=== PATIENT | female | born 2000 | race Caucasian/White ===

== ENCOUNTER 2021-02-08 18:32 | Emergency (ER) | payer OTHER ==
--- NOTE | 2021-02-08 19:04 | EDM.PDOC ---
ED HPI GENERAL MEDICAL PROBLEM - General Chief Complaint: [employer] Problem Stated Complaint: VAGINAL BLEEDING/CHEST PAIN Time Seen by Provider: 02/08/21 18:49 Source of Information: Reports: Patient History Limitations: Reports: No Limitations - History of Present Illness INITIAL COMMENTS - FREE TEXT/NARRATIVE: The patient presents with a few complaints. She said today she had some chest pain. The pain was in the right chest and it radiated to her right upper back. She has no pain now. She also has been having some abdominal pain at times. The pain is in the mid to upper abdomen. She has no fever, chills, cough, congestion, runny nose, shortness of breath, nausea, vomiting, diarrhea or dysuria. She says for about 2 1/2 weeks she has been having vaginal bleeding. She has no pain with it. She was on the Depo shot months ago but quit. She did see her primary care and she referred her to [facility] but they are all full. She has a history of headaches from a skull fracture when she was young. She is on propranolol for that. She also asked to be checked for STDs. She said she just kicked her boyfriend out because he was cheating on her. I asked if she wanted to be tested for HIV and she said now. She just wanted the gonorrhea and chlamydia. She had chlamydia in the past. She denies having symptoms such as vaginal discharge or discomfort. Onset: Sudden Duration: Hour(s): Location: Reports: Chest Quality: Reports: Sharp Severity: Moderate Improves with: Reports: None Worsens with: Reports: None Associated Symptoms: Reports: Chest Pain. Denies: Cough, Fever/Chills, Headaches, Nausea/Vomiting, Shortness of Breath Middle Chest Pain Score (Numeric/FACES): 4 - Related Data Allergies Allergy/AdvReac Type Severity Reaction Status Date / Time No Known Allergies Allergy Verified 02/08/21 18:48 Home Meds: Home Meds Propranolol HCl [Propranolol] 40 mg PO BID 02/08/21 [History] Past Medical History Neurological History: Reports: Migraines - Infectious Disease History Infectious Disease History: Reports: None Social & Family History - Family History Family Medical History: No Pertinent Family History - Tobacco Use Tobacco Use Status *Q: Never Tobacco User Second Hand Smoke Exposure: No - Caffeine Use Caffeine Use: Reports: None - Recreational Drug Use Recreational Drug Use: No ED ROS GENERAL - Review of Systems Review Of Systems: See Below Constitutional: Reports: No Symptoms HEENT: Reports: No Symptoms Respiratory: Reports: No Symptoms Cardiovascular: Reports: Chest Pain Endocrine: Reports: No Symptoms GI/Abdominal: Reports: Abdominal Pain. Denies: Diarrhea, Nausea, Vomiting : Reports: Other (vaginal bleeding). Denies: Dysuria Musculoskeletal: Reports: No Symptoms Skin: Reports: No Symptoms ED EXAM, GI/ABD - Physical Exam Exam: See Below Exam Limited By: No Limitations General Appearance: Alert, No Apparent Distress Ears: Normal External Exam Nose: Normal Inspection Head: Atraumatic, Normocephalic Neck: Normal Inspection Respiratory/Chest: No Respiratory Distress, Lungs Clear, Normal Breath Sounds Cardiovascular: Regular Rate, Rhythm, No Edema, No Murmur GI/Abdominal Exam: Soft, Non-Tender, No Organomegaly, No Mass Back Exam: Normal Inspection Extremities: Normal Inspection Neurological: Alert, Oriented, No Motor/Sensory Deficits Course - Vital Signs Last Recorded V/S: Last Vital Signs Temp 97.1 F 02/08/21 18:41 Pulse 111 H 02/08/21 18:41 Resp 16 02/08/21 18:41 BP 113/77 02/08/21 18:41 Pulse Ox 98 02/08/21 18:41 - Orders/Labs/Meds Orders: Active Orders 24 hr Category Date Time Status Cardiac Monitoring [RC] . DIRECTED Care 02/08/21 18:56 Active EKG Documentation Completion [RC] STAT Care 02/08/21 18:56 Active CHLAMYDIA AND GONORRHEA BY TMA Stat Lab 02/08/21 18:58 Ordered GC/CHLAMYDIA BY PCR [MOLEC] Stat Lab 02/08/21 20:47 Ordered Labs: Laboratory Tests 02/08/21 02/08/21 02/08/21 Range/Units 10:21 10:21 10:21 WBC 5.44 (3.98-10.04) K/mm3 RBC 4.53 (3.98-5.22) M/mm3 Hgb 13.2 (11.2-15.7) gm/dl Hct 38.6 (34.1-44.9) % MCV 85.2 (79.4-94.8) fl MCH 29.1 (25.6-32.2) pg MCHC 34.2 (32.2-35.5) g/dl RDW Std Deviation 38.2 (36.4-46.3) fL Plt Count 256 (182-369) K/mm3 MPV 9.8 (9.4-12.3) fl Neut % (Auto) 61.7 (34.0-71.1) % Lymph % (Auto) 27.4 (19.3-51.7) % Cascade % (Auto) 8.5 (4.7-12.5) % Eos % (Auto) 1.5 (0.7-5.8) Baso % (Auto) 0.7 (0.1-1.2) % Neut # (Auto) 3.36 (1.56-6.13) K/mm3 Lymph # (Auto) 1.49 (1.18-3.74) K/mm3 Cascade # (Auto) 0.46 H (0.24-0.36) K/mm3 Eos # (Auto) 0.08 (0.04-0.36) K/mm3 Baso # (Auto) 0.04 (0.01-0.08) K/mm3 Sodium 140 (136-145) mEq/L Potassium 3.2 L (3.5-5.1) mEq/L Chloride 104 (98-107) mEq/L Carbon Dioxide 27 (21-32) mEq/L Anion Gap 12.2 (5-15) BUN 18 (7-18) mg/dL Creatinine 0.9 (0.55-1.02) mg/dL Est Cr Clr Drug Dosing 84.75 mL/min Estimated GFR (MDRD) > 60 (>60) mL/min BUN/Creatinine Ratio 20.0 H (14-18) Glucose 118 H (70-99) mg/dL Calcium 8.6 (8.5-10.1) mg/dL Total Bilirubin 0.4 (0.2-1.0) mg/dL AST 11 L (15-37) U/L ALT 11 L (14-59) U/L Alkaline Phosphatase 60 (46-116) U/L Troponin I < 0.017 (0.00-0.056) ng/mL Total Protein 7.4 (6.4-8.2) g/dl Albumin 4.2 (3.4-5.0) g/dl Globulin 3.2 gm/dL Albumin/Globulin Ratio 1.3 (1-2) Lipase 114 (73-393) U/L HCG, Qual Negative (NEGATIVE) - Re-Assessments/Exams Free Text/Narrative Re-Assessment/Exam: 02/08/21 19:05 I have ordered an EKG, CXR, labs, urine for gonorrhea and chlamydia and pelvic exam with wet prep. My nurse came to tell me the patient did not want to have the pelvic exam done. She would rather see her primary care provider. 02/08/21 20:55 Her CXR looks good. Her EKG shows a NSR with no acute changes. Her CBC and CMP look good. Her troponin is negative. The gonorrhea and chlamydia will take awhile. I will discharge her and call her the results. Departure - Departure Time of Disposition: 21:00 Disposition: Home, Self-Care 01 Condition: Good Clinical Impression: Atypical chest pain, Vaginal bleeding - Discharge Information *PRESCRIPTION DRUG MONITORING PROGRAM REVIEWED*: Not Applicable *COPY OF PRESCRIPTION DRUG MONITORING REPORT IN PATIENT LINDA: Not Applicable Referrals: Colleen Sheets DIGITAL MEDIA ANALYST [Primary Care Provider] - 1 Week Forms: ED Department Discharge Additional Instructions: Drink plenty of fluids. Take tylenol or motrin for pain. I will call you with the results of that urine test. Sepsis Event Note (ED) - Evaluation Sepsis Screening Result: No Definite Risk - Focused Exam Vital Signs: Vital Signs Temp Pulse Resp BP Pulse Ox 02/08/21 18:41 97.1 F 111 H 16 113/77 98 - My Orders Last 24 Hours: My Active Orders 02/08/21 18:56 Cardiac Monitoring [RC] . DIRECTED EKG Documentation Completion [RC] STAT 02/08/21 18:58 CHLAMYDIA AND GONORRHEA BY TMA Stat 02/08/21 20:47 GC/CHLAMYDIA BY PCR [MOLEC] Stat - Assessment/Plan Last 24 Hours: My Active Orders 02/08/21 18:56 Cardiac Monitoring [RC] . DIRECTED EKG Documentation Completion [RC] STAT 02/08/21 18:58 CHLAMYDIA AND GONORRHEA BY TMA Stat 02/08/21 20:47 GC/CHLAMYDIA BY PCR [MOLEC] Stat
--- NOTE | 2021-02-08 20:14 | CR ---
Chest: Frontal and lateral views of the chest were obtained. Comparison: No prior chest imaging is available. Slight scoliosis is noted within the spine. Heart size and mediastinum are normal. Lungs are clear with no acute parenchymal change. Impression: 1. Nothing acute is seen on 2 view chest x-ray. Diagnostic code #2
[2021-02-08 22:33] LABS: C. TRACHOMATIS BY PCR NOT DETECTED; N. GONORRHOEAE BY PCR NOT DETECTED
== END 2021-02-08 21:10 | disposition home or self-care (01) ==
LOC: JD.ED 18:32
DX: R07.89 Other chest pain (principal); N93.9 Abnormal uterine and vaginal bleeding, unspecified
CPT/HCPCS: 36415; 71046; 71046-26; 80053; 83690; 84484; 84703; 85025; 87491; 87591; 93005; 99283; 99285-25

== ENCOUNTER 2021-04-24 23:25 | Emergency (ER) | payer OTHER ==
[2021-04-25] MEDS ORDERED: Alum Hydrox/Mag Hydrox/Simeth 30 ML, Lidocaine 2% 15 ML PO STA ×2 (01:38)
[2021-04-25] MEDS ORDERED: Ondansetron 4 MG/2 ML SDV IVPUSH ONE (01:38)
--- NOTE | 2021-04-25 01:44 | EDM.PDOC ---
ED HPI GENERAL MEDICAL PROBLEM - General Chief Complaint: Abdominal Pain Stated Complaint: CHEST PAIN / ABDOMINAL PAIN Time Seen by Provider: 04/25/21 01:12 Source of Information: Reports: Patient History Limitations: Reports: No Limitations - History of Present Illness INITIAL COMMENTS - FREE TEXT/NARRATIVE: Ms. Chairez is a very pleasant 20-year-old woman who now presents the ED stating that she has been experiencing episodic epigastric pain radiating up into her chest for the past few months, worse over the past few days. She reports having nausea after eating, but no vomiting. The patient states that she was seen at an ED in [place], and that some form of study indicated that she had abnormal gallbladder function. She was instructed to follow-up, but never did, citing lack of health insurance. Medical records indicate that the patient was seen in this ED for essentially the same complaint on 02/08/2021. She was found to be hemodynamically stable, afebrile, saturating 98% on room air. Her physical exam was unremarkable. Work-up included a CBC, CMP, lipase, troponin, serum qualitative hCG, urine GC/chlamydia by PCR, chest x-ray, and ECG. Her entire work-up was unremarkable. The patient states that she talked with her PCP yesterday, 04/24/2021, and was told that nothing could be done. She was prescribed an increased dose of her anti-anxiety medication, whose name she does not recall, plus a different anti-anxiety medication. She states that she has not yet started either of them. Here in the ED tonight, the patient was initially found to be slightly tachycardic at 105 bpm, otherwise, she is hemodynamically stable, afebrile, saturating 100% on room air. She appears to be comfortable, in no acute distress. She states that she last ate around 22:00 last night. Other than her recurrent epigastric pain radiating to her chest, and nausea, the patient denies having a recent fever, chills, sore throat, ear pain, nasal or sinus congestion, cough, dyspnea, palpitations, vomiting, constipation, diarrhea, urinary symptoms, recent weight gain or weight loss, recent bloody bowel movements or black bowel movements, recent joint aches, headaches, or rashes. The patient's PCP is Colleen Sheets NP. Abdomen Pain Score (Numeric/FACES): 10 - Related Data Allergies Allergy/AdvReac Type Severity Reaction Status Date / Time No Known Allergies Allergy Verified 04/24/21 23:42 Home Meds: Home Meds Propranolol HCl [Propranolol] 40 mg PO BID 02/08/21 [History] Escitalopram [Lexapro] 10 mg PO DAILY 04/24/21 [History] hydrOXYzine HCL [Atarax] 5 ml PO QID PRN 04/24/21 [History] Past Medical History Musculoskeletal History: Reports: Fracture (Skull fx when 2 yrs old. Right ankle fx.) Neurological History: Reports: Migraines Psychiatric History: Reports: Anxiety Social & Family History - Tobacco Use Tobacco Use Status *Q: Never Tobacco User - Caffeine Use Caffeine Use: Reports: None - Alcohol Use Alcohol Use History: No - Recreational Drug Use Recreational Drug Use: No - Living Situation & Occupation Living situation: Reports: Single, with Family Occupation: Employed ([employer]) ED ROS GENERAL - Review of Systems Review Of Systems: Comprehensive ROS is negative, except as noted in HPI. ED EXAM, GI/ABD - Physical Exam Exam: See Below Exam Limited By: No Limitations General Appearance: Alert, No Apparent Distress, Thin Eyes: Bilateral: Normal Appearance, EOMI Ears: Normal External Exam, Hearing Grossly Normal Nose: Normal Inspection Throat/Mouth: Normal Inspection, Normal Lips, Normal Voice, No Airway Compromise Head: Atraumatic, Normocephalic Neck: Normal Inspection, Full Range of Motion Respiratory/Chest: No Respiratory Distress, Lungs Clear, Normal Breath Sounds, No Accessory Muscle Use Cardiovascular: Normal Peripheral Pulses, Regular Rate, Rhythm, No Edema, No Gallop, No JVD, No Murmur, No Rub GI/Abdominal Exam: Normal Bowel Sounds, Soft, No Organomegaly, No Distention, No Abnormal Bruit, No Mass, Tender (Mild, in the epigastrium only. Nontender elsewhere.) Back Exam: Normal Inspection, Full Range of Motion. No: CVA Tenderness (L), CVA Tenderness (R) Extremities: Normal Inspection, Normal Range of Motion, No Pedal Edema, Normal Capillary Refill Neurological: Alert, Oriented, Normal Cognition, No Motor/Sensory Deficits Psychiatric: Normal Affect Skin Exam: Warm, Dry, Intact, Normal Color, No Rash Course - Vital Signs Last Recorded V/S: Last Vital Signs Temp 37.0 C 04/24/21 23:44 Pulse 105 H 04/24/21 23:44 Resp 15 04/24/21 23:44 BP 120/77 04/24/21 23:44 Pulse Ox 100 04/24/21 23:44 - Orders/Labs/Meds Labs: Laboratory Tests 04/25/21 04/25/21 Range/Units 02:09 02:09 WBC 6.89 (3.98-10.04) K/mm3 RBC 4.39 (3.98-5.22) M/mm3 Hgb 12.6 (11.2-15.7) gm/dl Hct 37.7 (34.1-44.9) % MCV 85.9 (79.4-94.8) fl MCH 28.7 (25.6-32.2) pg MCHC 33.4 (32.2-35.5) g/dl RDW Std Deviation 40.6 (36.4-46.3) fL Plt Count 267 (182-369) K/mm3 MPV 9.3 L (9.4-12.3) fl Neutrophils % (Manual) 60 (40-60) % Band Neutrophils % 0 (0-10) % Lymphocytes % (Manual) 30 (20-40) % Atypical Lymphs % 0 % Monocytes % (Manual) 9 (2-10) % Eosinophils % (Manual) 1 (0.7-5.8) % Basophils % (Manual) 0 L (0.1-1.2) Platelet Estimate Adequate RBC Morph Comment Normal Sodium 143 (136-145) mEq/L Potassium 3.6 (3.5-5.1) mEq/L Chloride 107 (98-107) mEq/L Carbon Dioxide 29 (21-32) mEq/L Anion Gap 10.6 (5-15) BUN 19 H (7-18) mg/dL Creatinine 0.7 (0.55-1.02) mg/dL Est Cr Clr Drug Dosing 118.52 mL/min Estimated GFR (MDRD) > 60 (>60) mL/min BUN/Creatinine Ratio 27.1 H (14-18) Glucose 95 (70-99) mg/dL Calcium 8.8 (8.5-10.1) mg/dL Total Bilirubin 0.4 (0.2-1.0) mg/dL AST 11 L (15-37) U/L ALT 15 (14-59) U/L Alkaline Phosphatase 69 (46-116) U/L Total Protein 7.0 (6.4-8.2) g/dl Albumin 3.7 (3.4-5.0) g/dl Globulin 3.3 gm/dL Albumin/Globulin Ratio 1.1 (1-2) Lipase 83 (73-393) U/L Meds: Medications Discontinued Medications Generic Name Dose Route Start Last Admin Trade Name Freq PRN Reason Stop Dose Admin Al Hydroxide/Mg Hydroxide 30 0 ml 04/25/21 01:38 04/25/21 02:07 ml/ Lidocaine HCl 15 ml PO 04/25/21 01:39 45 ml ONETIME STA Administration Famotidine 40 mg 04/25/21 03:06 04/25/21 03:18 Famotidine 20 Mg Tab PO 04/25/21 03:07 40 mg ONETIME STA Administration Sodium Chloride 1,000 mls @ 150 mls/hr 04/25/21 01:45 04/25/21 02:06 Normal Saline IV 150 mls/hr ASDIRECTED ZARINA Administration Ondansetron HCl 4 mg 04/25/21 01:38 04/25/21 02:06 Ondansetron 4 Mg/2 Ml Sdv IVPUSH 04/25/21 01:39 4 mg ONETIME ONE Administration - Re-Assessments/Exams Free Text/Narrative Re-Assessment/Exam: 04/25/21 01:39 As above, the patient has been experiencing intermittent epigastric pain radiating up into her chest for the past few months. She states that she was seen in an ED in [place], where she might have undergone a HIDA scan, which showed abnormal biliary function. She was seen in this ED on 02/08/2021, where a work- up included blood work, a urine GC/chlamydia by PCR, a chest x-ray, and an ECG, all of which were unremarkable. She states that her symptoms have gotten worse over the past few days, and that she has nausea after eating, but no vomiting. On examination, she reports mild epigastric tenderness, otherwise, her exam is unremarkable. She will be given a GI cocktail, to see if that has any effect on her symptoms. I have ordered a work-up that includes several blood tests, however, the patient declined an offer for a CT of the abdomen and pelvis, stating that she has to be at work at 6 AM. Because she ate at 22:00, an ultrasound of her right upper quadrant is not an option at this time. She will be given some IV fluid and IV Zofran, however, again, because she has to be at work at 6 AM, she declined an offer for pain medication. 04/25/21 02:27 The patient reports that the GI cocktail did help with her symptoms. 04/25/21 03:06 The patient's CBC is unremarkable. Her CMP is unremarkable. Her lipase level is within normal limits at 83. Based on the above, I have ordered 40 mg of oral famotidine. 04/25/21 03:09 Test results discussed with the patient. As above, since she had improvement of her symptoms following GI cocktail, it appears that her symptoms are due to GERD. Going forward, I will recommend that she take 1 tablet of OTC famotidine twice a day x 7 days, after which she can take 1 tablet each morning. If her symptoms return, she should return to a BID schedule. If she wants to look further into whether or not she has gallbladder disease, have recommended that she follow-up with her PCP, who can order an outpatient evaluation. Departure - Departure Time of Disposition: 03:10 Disposition: Home, Self-Care 01 Condition: Good Clinical Impression: GERD (gastroesophageal reflux disease) - Discharge Information *PRESCRIPTION DRUG MONITORING PROGRAM REVIEWED*: Not Applicable *COPY OF PRESCRIPTION DRUG MONITORING REPORT IN PATIENT LINDA: Not Applicable Instructions: Gastroesophageal Reflux Disease, Adult Referrals: Colleen Sheets CUSTOMER STRATEGY MANAGER [Primary Care Provider] - Forms: ED Department Discharge Additional Instructions: You were seen in the emergency room for 2 months of intermittent upper midline abdominal pain radiating into your chest, associated with nausea. Work-up in the ER included several blood tests, which returned unremarkable. There is no sign of an infection. You do not have pancreatitis. You were given a GI cocktail, which improved your symptoms, indicating that your symptoms are most likely due to GERD, also known as acid reflux. You have been started on antacid medicine famotidine (Pepcid). Famotidine is available [id number], and is just as good as brand-name Pepcid. We recommend that you take 1 tablet of famotidine twice a day for 1 week, then decrease the dosage to 1 tablet each morning. If your symptoms return after you decrease your dosage, you should return to 1 tablet twice a day, however, if you remain asymptomatic, then we recommend that you continue on 1 tablet of famotidine every morning. If you want to pursue further evaluation of your gallbladder, we recommend that you follow-up with your PCP, Colleen Sheets NP, for an outpatient work-up that could include an ultrasound of your gallbladder and a HIDA scan. If any other problems, please do not hesitate to return to the ER. Sepsis Event Note (ED) - Evaluation Sepsis Screening Result: No Definite Risk - Focused Exam Vital Signs: Vital Signs Temp Pulse Resp BP Pulse Ox 04/24/21 23:44 37.0 C 105 H 15 120/77 100
[2021-04-25] MEDS ORDERED: Sodium Chloride 0.9% 1,000 ML IV SCH (01:45)
[2021-04-25] MEDS ORDERED: Famotidine 20 MG Tab PO STA (03:06)
== END 2021-04-25 03:23 | disposition home or self-care (01) ==
LOC: JD.ED 23:25
DX: K21.9 Gastro-esophageal reflux disease without esophagitis (principal)
CPT/HCPCS: 36415; 80053; 83690; 85007; 85027; 96374; 99284; A9270; J2405; J7030; 99283

== ENCOUNTER 2021-06-13 13:23 | Emergency (ER) | payer OTHER ==
[2021-06-13] MEDS ORDERED: Sodium Chloride 0.9% 10 ML Syringe FLUSH PRN (13:35)
--- NOTE | 2021-06-13 13:51 | EDM.PDOC ---
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 Patient states she has never been before ever. She has been having unprotected sex, so there is a possibility that she could be . She is having some lower abdominal discomfort with this. States that she had her period twice this month already, and that she is soaking through about 6 or 8 pads pretty regularly on a daily basis. States that when she was in the bathroom, and wipes to get off of the toilet, that the blood still is dripping out. She does have a history of ovarian cysts as well. She states that the pain does feel like period cramps however it is a little bit worse than that. She has not had any fevers or chills, cough or shortness of breath or any sort of nausea/vomiting/diarrhea. Abdomen Pain Score (Numeric/FACES): 8 - Related Data Allergies Allergy/AdvReac Type Severity Reaction Status Date / Time No Known Allergies Allergy Verified 06/13/21 13:36 Home Meds: Home Meds Propranolol HCl [Propranolol] 40 mg PO BID 02/08/21 [History] Escitalopram [Lexapro] 10 mg PO DAILY 04/24/21 [History] hydrOXYzine HCL [Atarax] 5 ml PO QID PRN 04/24/21 [History] medroxyPROGESTERone [Provera] 10 mg PO DAILY #10 tab 06/13/21 [Rx] Past Medical History Genitourinary History: Reports: STD Other Genitourinary History: chlamydia Musculoskeletal History: Reports: Fracture Other Musculoskeletal History: skull fx when she was 2 Neurological History: Reports: Migraines Psychiatric History: Reports: Anxiety Social & Family History - Family History Family Medical History: No Pertinent Family History - Tobacco Use Tobacco Use Status *Q: Never Tobacco User Second Hand Smoke Exposure: No - Caffeine Use Caffeine Use: Reports: None - Recreational Drug Use Recreational Drug Use: No - Living Situation & Occupation Living situation: Reports: Single, with Family Occupation: Employed ([employer]) ED ROS GENERAL - Review of Systems Review Of Systems: Comprehensive ROS is negative, except as noted in HPI. ED EXAM, RENAL/ - Physical Exam Exam: See Below Exam Limited By: No Limitations General Appearance: Alert, WD/WN, No Apparent Distress Respiratory/Chest: No Respiratory Distress, Lungs Clear, Normal Breath Sounds, No Accessory Muscle Use, Chest Non-Tender Cardiovascular: Normal Peripheral Pulses, Regular Rate, Rhythm, No Edema GI/Abdominal: Normal Bowel Sounds, Soft, No Distention, No Mass, Tender (lower abdomen mainly) (Female) Exam: Vaginal Bleeding (as reported by patient- bleeding through 6-8 pads daily) Extremities: Normal Inspection, Normal Capillary Refill Neurological: Alert, Oriented, Normal Cognition, No Motor/Sensory Deficits Psychiatric: Normal Affect, Normal Mood Skin Exam: Warm, Dry, Intact, Normal Color, No Rash Course - Vital Signs Last Recorded V/S: Last Vital Signs Temp 97.9 F 06/13/21 13:34 Pulse 98 06/13/21 13:34 Resp 16 06/13/21 13:34 BP 127/86 06/13/21 13:34 Pulse Ox 100 06/13/21 13:34 - Orders/Labs/Meds Orders: Active Orders 24 hr Category Date Time Status Peripheral IV Care [RC] . DIRECTED Care 06/13/21 13:36 Ordered Transvaginal Non OB [US] Stat Exams 06/13/21 15:06 Ordered PATIENT RETYPE [BBK] Routine Lab 06/13/21 14:40 Ordered Sodium Chloride 0.9% [Saline Flush] Med 06/13/21 13:35 Ordered 10 ml FLUSH ASDIRECTED PRN Peripheral IV Insertion Adult [OM.PC] Stat Oth 06/13/21 13:36 Ordered Medication Orders Sodium Chloride (Sodium Chloride 0.9% 10 Ml Syringe) 10 ml FLUSH ASDIRECTED PRN PRN Reason: Keep Vein Open Labs: Laboratory Tests 06/13/21 06/13/21 06/13/21 Range/Units 13:40 13:45 13:45 WBC 6.83 (3.98-10.04) K/mm3 RBC 4.94 (3.98-5.22) M/mm3 Hgb 14.1 D (11.2-15.7) gm/dl Hct 42.3 (34.1-44.9) % MCV 85.6 (79.4-94.8) fl MCH 28.5 (25.6-32.2) pg MCHC 33.3 (32.2-35.5) g/dl RDW Std Deviation 41.1 (36.4-46.3) fL Plt Count 257 (182-369) K/mm3 MPV 9.2 L (9.4-12.3) fl Neut % (Auto) 72.4 H (34.0-71.1) % Lymph % (Auto) 18.2 L (19.3-51.7) % Gordon % (Auto) 7.0 (4.7-12.5) % Eos % (Auto) 2.0 (0.7-5.8) Baso % (Auto) 0.3 (0.1-1.2) % Neut # (Auto) 4.94 (1.56-6.13) K/mm3 Lymph # (Auto) 1.24 (1.18-3.74) K/mm3 Gordon # (Auto) 0.48 H (0.24-0.36) K/mm3 Eos # (Auto) 0.14 (0.04-0.36) K/mm3 Baso # (Auto) 0.02 (0.01-0.08) K/mm3 Sodium 140 (136-145) mEq/L Potassium 3.7 (3.5-5.1) mEq/L Chloride 103 (98-107) mEq/L Carbon Dioxide 28 (21-32) mEq/L Anion Gap 12.7 (5-15) BUN 22 H (7-18) mg/dL Creatinine 0.7 (0.55-1.02) mg/dL Est Cr Clr Drug Dosing 119.01 mL/min Estimated GFR (MDRD) > 60 (>60) mL/min BUN/Creatinine Ratio 31.4 H (14-18) Glucose 97 (70-99) mg/dL Calcium 8.9 (8.5-10.1) mg/dL Total Bilirubin 0.3 (0.2-1.0) mg/dL AST 17 (15-37) U/L ALT 26 (14-59) U/L Alkaline Phosphatase 86 (46-116) U/L C-Reactive Protein <0.2 (<1.0) mg/dL Total Protein 8.0 (6.4-8.2) g/dl Albumin 4.1 (3.4-5.0) g/dl Globulin 3.9 gm/dL Albumin/Globulin Ratio 1.1 (1-2) HCG, Qual (NEGATIVE) Urine Color Yellow (Yellow) Urine Appearance Clear (Clear) Urine pH 6.0 (5.0-8.0) Ur Specific [place] > or = 1.030 (1.005-1.030) Urine Protein Negative (Negative) Urine Glucose (UA) Negative (Negative) Urine Ketones Negative (Negative) Urine Occult Blood 3+ H (Negative) Urine Nitrite Negative (Negative) Urine Bilirubin Negative (Negative) Urine Urobilinogen 0.2 (0.2-1.0) Ur Leukocyte Esterase Negative (Negative) U Hyaline Cast (Auto) Supervisor Insecticide Urine RBC 10-20 H (0-5) /hpf Urine WBC 0-5 (0-5) /hpf Ur Squamous Epith Cells 5-10 H (0-5) /hpf Urine Bacteria Few (FEW) /hpf Urine Mucus Few (FEW) /hpf Blood Type Gel Antibody Screen 06/13/21 06/13/21 Range/Units 13:45 13:45 WBC (3.98-10.04) K/mm3 RBC (3.98-5.22) M/mm3 Hgb (11.2-15.7) gm/dl Hct (34.1-44.9) % MCV (79.4-94.8) fl MCH (25.6-32.2) pg MCHC (32.2-35.5) g/dl RDW Std Deviation (36.4-46.3) fL Plt Count (182-369) K/mm3 MPV (9.4-12.3) fl Neut % (Auto) (34.0-71.1) % Lymph % (Auto) (19.3-51.7) % Gordon % (Auto) (4.7-12.5) % Eos % (Auto) (0.7-5.8) Baso % (Auto) (0.1-1.2) % Neut # (Auto) (1.56-6.13) K/mm3 Lymph # (Auto) (1.18-3.74) K/mm3 Gordon # (Auto) (0.24-0.36) K/mm3 Eos # (Auto) (0.04-0.36) K/mm3 Baso # (Auto) (0.01-0.08) K/mm3 Sodium (136-145) mEq/L Potassium (3.5-5.1) mEq/L Chloride (98-107) mEq/L Carbon Dioxide (21-32) mEq/L Anion Gap (5-15) BUN (7-18) mg/dL Creatinine (0.55-1.02) mg/dL Est Cr Clr Drug Dosing mL/min Estimated GFR (MDRD) (>60) mL/min BUN/Creatinine Ratio (14-18) Glucose (70-99) mg/dL Calcium (8.5-10.1) mg/dL Total Bilirubin (0.2-1.0) mg/dL AST (15-37) U/L ALT (14-59) U/L Alkaline Phosphatase (46-116) U/L C-Reactive Protein (<1.0) mg/dL Total Protein (6.4-8.2) g/dl Albumin (3.4-5.0) g/dl Globulin gm/dL Albumin/Globulin Ratio (1-2) HCG, Qual Negative (NEGATIVE) Urine Color (Yellow) Urine Appearance (Clear) Urine pH (5.0-8.0) Ur Specific [place] (1.005-1.030) Urine Protein (Negative) Urine Glucose (UA) (Negative) Urine Ketones (Negative) Urine Occult Blood (Negative) Urine Nitrite (Negative) Urine Bilirubin (Negative) Urine Urobilinogen (0.2-1.0) Ur Leukocyte Esterase (Negative) U Hyaline Cast (Auto) Urine RBC (0-5) /hpf Urine WBC (0-5) /hpf Ur Squamous Epith Cells (0-5) /hpf Urine Bacteria (FEW) /hpf Urine Mucus (FEW) /hpf Blood Type O POSITIVE Gel Antibody Screen Negative Meds: Medications Generic Name Dose Route Start Last Admin Trade Name Freq PRN Reason Stop Dose Admin Sodium Chloride 10 ml 06/13/21 13:35 Sodium Chloride 0.9% 10 Ml Syringe FLUSH ASDIRECTED PRN Keep Vein Open Discontinued Medications Generic Name Dose Route Start Last Admin Trade Name Freq PRN Reason Stop Dose Admin Ketorolac Tromethamine 30 mg 06/13/21 15:03 06/13/21 15:09 Ketorolac 30 Mg/Ml Sdv IM 06/13/21 15:04 30 mg ONETIME ONE Administration - Re-Assessments/Exams Free Text/Narrative Re-Assessment/Exam: 06/13/21 13:51 Patient presents to the ER for evaluation of vaginal bleeding. We will go ahead and evaluate for initially along with basic labs to evaluate the extent of the blood loss. 06/13/21 14:35 Labs are unremarkable at this time, patient's hemoglobin is at a level of 14. hCG qualitative serum level is still pending. 06/13/21 15:09 hCG test is negative for today's purposes. Patient was requesting something for pain I have ordered some IM Toradol for this. I did go and discuss lab results with the patient, and since she has a history of ovarian cysts, she was wondering if she could get an ultrasound done while she is here to rule out the possibility of any sort of ruptured ovarian cysts or complications pertaining to her cysts. Although I do believe this to be dysfunctional uterine bleeding, I have ordered a transvaginal non-OB ultrasound for further evaluation. 06/13/21 16:47 Patient's ultrasound demonstrates no sign of ovarian cyst at this time, there is septated irregular fluid collections within the endocervical canal and the endometrium of the lower uterine segment fluid component could be impending menses which correlates clinically, or endometritis. Departure - Departure Time of Disposition: 16:47 Disposition: Home, Self-Care 01 Condition: Good Clinical Impression: Dysfunctional uterine bleeding - Discharge Information *PRESCRIPTION DRUG MONITORING PROGRAM REVIEWED*: No *COPY OF PRESCRIPTION DRUG MONITORING REPORT IN PATIENT LINDA: No Prescriptions: medroxyPROGESTERone [Provera] 10 mg PO DAILY #10 tab Instructions: Abnormal Uterine Bleeding, [id number] Referrals: Colleen Sheets NP [Primary Care Provider] - Forms: ED Department Discharge Additional Instructions: You were seen in the ER for your vaginal bleeding. Laboratory evaluation at today's visit demonstrated no sign of a bacterial infection, , or any sort of electrolyte abnormalities. It is highly likely this is due to dysfunctional uterine bleeding, which sometimes happens. Your ultrasound demonstrated no sign of any sort of ovarian cyst at today's visit. You have been placed on a medication to "reset" your menstrual cycle. You will need to take 1 tablet daily for the next 10 days. This medication was electronically sent to the [facility] pharmacy located on [address]. If you do not have a primary care provider already, I recommend that you follow- up with a provider in our clinic, any family practice provider or PLASTICS ENGINEER would be able to provide you with the services. Our clinic telephone number [phone], please call in the morning to obtain an appointment with the provider, for follow-up of your symptoms that prompted your ER visit today. Do not hesitate to return to the ER at any time if symptoms change or worsen. Sepsis Event Note (ED) - Evaluation Sepsis Screening Result: No Definite Risk - Focused Exam Vital Signs: Vital Signs Temp Pulse Resp BP Pulse Ox 06/13/21 13:34 97.9 F 98 16 127/86 100 - My Orders Last 24 Hours: My Active Orders 06/13/21 13:35 Sodium Chloride 0.9% [Saline Flush] 10 ml FLUSH ASDIRECTED PRN 06/13/21 13:36 Peripheral IV Care [RC] . DIRECTED Peripheral IV Insertion Adult [OM.PC] Stat 06/13/21 14:40 PATIENT RETYPE [BBK] Routine 06/13/21 15:06 Transvaginal Non OB [US] Stat - Assessment/Plan Last 24 Hours: My Active Orders 06/13/21 13:35 Sodium Chloride 0.9% [Saline Flush] 10 ml FLUSH ASDIRECTED PRN 06/13/21 13:36 Peripheral IV Care [RC] . DIRECTED Peripheral IV Insertion Adult [OM.PC] Stat 06/13/21 14:40 PATIENT RETYPE [BBK] Routine 06/13/21 15:06 Transvaginal Non OB [US] Stat
[2021-06-13] MEDS ORDERED: Ketorolac 30 MG/ML SDV IM ONE (15:03)
--- NOTE | 2021-06-14 06:51 | US ---
Pelvic ultrasound: Multiple real-time images were obtained transvaginally. Comparison: Prior pelvic ultrasound study of 10/05/20. Septated fluid collection is seen within the endometrial cavity. Endometrial thickness is otherwise normal at 6.1 mm. No myometrial abnormality is appreciated. Multiple follicles are seen within both ovaries. Small amount of free fluid is seen believed to be physiologic. Measurements: Right ovary: 4.0 x 2.5 x 2.5 cm Left ovary: 3.2 x 2.1 x 2.8 cm Uterus: Length 6.5 cm, AP height 2.7 cm, transverse width 3.6 cm Impression: 1. Septated fluid collection within the endometrial cavity. This most likely represents a small amount of blood or other endometrial fluid. 2. Small amount of fluid within the pelvis most likely physiologic. 3. Other portions of the pelvic ultrasound study are unremarkable. Diagnostic code #2 I agree with preliminary report from [facility], finalized on 06/13/21, 5:36 PM CDT, code 1
== END 2021-06-13 17:12 | disposition home or self-care (01) ==
LOC: JD.ED 13:23
DX: N93.8 Other specified abnormal uterine and vaginal bleeding (principal)
CPT/HCPCS: 36415; 76830; 80053; 81001; 84703; 85025; 86140; 86850; 86900; 86901; 96372; 99284; J1885

== ENCOUNTER 2021-06-28 20:02 | Emergency (ER) | payer OTHER ==
[2021-06-28] MEDS ORDERED: Codeine/Promethazine 10-6.25 MG/5 ML Syrup 5 ML UD Cup PO ONE (20:30)
[2021-06-28] MEDS ORDERED: Ketorolac 30 MG/ML SDV IM ONE (20:30)
--- NOTE | 2021-06-28 20:35 | EDM.PDOC ---
ED HPI GENERAL MEDICAL PROBLEM - General Chief Complaint: General Stated Complaint: FEVER/COUGH/DIARRHEA/VOMITING Time Seen by Provider: 06/28/21 20:23 Source of Information: Reports: Patient, RN Notes Reviewed History Limitations: Reports: No Limitations - History of Present Illness INITIAL COMMENTS - FREE TEXT/NARRATIVE: Patient is a 20-year old female who presents to the ER for her multiple upper respiratory symptoms. Patient states that this started on Friday, but has worsened today. She has a cough, feels feverish, has had some chills, body aches, nausea without vomiting, and has had diarrhea as well. States she has tried multiple [id number] medications and nothing really seems to be providing much relief. Patient states that she has not been around anyone has been sick that she is aware of. She does state that her brother and sister both leave the house for work, but she is not left the house all week. 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, Other (See Below) 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 ED EXAM, GENERAL - Physical Exam Exam: See Below Exam Limited By: No Limitations General Appearance: Alert, WD/WN, No Apparent Distress Respiratory/Chest: No Respiratory Distress, Lungs Clear, Normal Breath Sounds, No Accessory Muscle Use, Chest Non-Tender Cardiovascular: Normal Peripheral Pulses, Regular Rate, Rhythm, No Edema GI/Abdominal: Normal Bowel Sounds, Soft, Non-Tender, No Distention, No Mass Neurological: Alert, Oriented, Normal Cognition, No Motor/Sensory Deficits Psychiatric: Normal Affect, Normal Mood Skin Exam: Warm, Dry, Intact, Normal Color, No Rash Course - Vital Signs Last Recorded V/S: Last Vital Signs Temp 98.4 F 06/28/21 20:18 Pulse 128 H 06/28/21 20:18 Resp 18 06/28/21 20:18 BP 116/74 06/28/21 20:18 Pulse Ox 99 06/28/21 20:18 - Orders/Labs/Meds Labs: Laboratory Tests 06/28/21 Range/Units 20:10 Influenza Type A RNA Negative (NEGATIVE) Influenza Type B RNA Negative (NEGATIVE) SARS-CoV-2 RNA (KAYLEY) Negative (NEGATIVE) Meds: Medications Discontinued Medications Generic Name Dose Route Start Last Admin Trade Name Freq PRN Reason Stop Dose Admin Ketorolac Tromethamine 30 mg 06/28/21 20:30 06/28/21 20:41 Ketorolac 30 Mg/Ml Sdv IM 06/28/21 20:31 30 mg ONETIME ONE Administration Promethazine HCl/Codeine 10 ml 06/28/21 20:30 06/28/21 20:40 Codeine/Promethazine 10-6.25 Mg/5 Ml Syrup 5 Ml Ud Cup PO 06/28/21 20:31 10 ml ONETIME ONE Administration - Re-Assessments/Exams Free Text/Narrative Re-Assessment/Exam: 06/28/21 20:37 Patient presents to the ER for the evaluation of her multiple upper respiratory symptoms. Covid and flu swab were obtained at time of triage. We will go ahead and give her IM Toradol and some cough medicine to see if this helps relieve some of her symptoms. 06/28/21 21:26 The patient's Covid and flu screen are negative at today's visit, however her symptoms are very suspicious for COVID-19. We will have her go ahead and isolate herself away from others as much as possible, and have her retest for COVID-19 in a few days. Departure - Departure Time of Disposition: 21:26 Disposition: Home, Self-Care 01 Condition: Good Clinical Impression: Suspected COVID-19 virus infection - Discharge Information *PRESCRIPTION DRUG MONITORING PROGRAM REVIEWED*: No *COPY OF PRESCRIPTION DRUG MONITORING REPORT IN PATIENT LINDA: No Prescriptions: Codeine/Promethazine [Phenergan with Codeine] 5 ml PO Q4HR PRN #120 ml PRN Reason: Cough Instructions: COVID-19: Quarantine vs. Isolation - [facility] (09/07/2020) Referrals: Colleen Sheets, LEARNING SERVICES COORDINATOR [Primary Care Provider] - Forms: ED Department Discharge Additional Instructions: You were evaluated in the ER today for your [id number] symptoms. Your COVID-19 and influenza test did come back negative, but sometimes these are false negatives. These Covid screens are only about 60% accurate; and it is common to test negative initially but then test positive a few days later. Due to this, we recommend that you try to isolate yourself away from others, and get retested for COVID-19 in about 3 or 4 days. There are multiple sites that can do this, there is a drive-through clinic conducted by the [facility], there is a walk-in clinic and our Covid clinic that can help you with these. Continue all other medications as previously prescribed. You were given a prescription for cough medication that was sent to the [facility] pharmacy located on [address]. Please fill this tomorrow and take as prescribed. Continue to use Tylenol ibuprofen every 6 hours as needed for ongoing pain management. Do not hesitate to return to the ER at any time if symptoms change or worsen. Sepsis Event Note (ED) - Focused Exam Vital Signs: Vital Signs Temp Pulse Resp BP Pulse Ox 06/28/21 20:18 98.4 F 128 H 18 116/74 99
[2021-06-28 21:18] LABS: CORONAVIRUS COVID-19 NAA NEGATIVE (NEGATIVE)
== END 2021-06-28 21:40 | disposition home or self-care (01) ==
LOC: JD.ED 20:02
DX: R05.9 Cough, unspecified (principal); Z20.822 Contact with and (suspected) exposure to COVID-19
CPT/HCPCS: 0240U; 96372; 99283; A9270; J1885

== ENCOUNTER 2021-09-05 07:37 | Emergency (ER) | payer OTHER ==
[2021-09-05] MEDS ORDERED: Sodium Chloride 0.9% 10 ML Syringe FLUSH PRN (08:10)
[2021-09-05] MEDS ORDERED: Ondansetron 4 MG/2 ML SDV IVPUSH ONE (08:10)
[2021-09-05] MEDS ORDERED: Sodium Chloride 0.9% 1,000 ML IV STA (08:10)
[2021-09-05] MEDS ORDERED: HYDROmorphone 0.5 MG/0.5 ML Syringe IVPUSH ONE (08:11)
--- NOTE | 2021-09-05 08:18 | EDM.PDOC ---
ED HPI GENERAL MEDICAL PROBLEM - General Chief Complaint: Gastrointestinal Problem Stated Complaint: VOMITING AND DIARRHEA Time Seen by Provider: 09/05/21 07:44 Source of Information: Reports: Patient History Limitations: Reports: No Limitations - History of Present Illness INITIAL COMMENTS - FREE TEXT/NARRATIVE: The patient presents with nausea, vomiting, diarrhea and abdominal pain. This started last night about 2300. She is concerned she may have food poisoning. Her brother made her spaghetti last night. She has some mild upper abdominal pain. She has no fever or chills. She does have a slight cough with the vomiting. She has no chest pain or shortness of breath. She still has her appendix and gallbladder. Onset: Sudden Duration: Day(s): (last night at 2300) Location: Reports: Abdomen Quality: Reports: Ache Severity: Mild Improves with: Reports: None Worsens with: Reports: None Associated Symptoms: Reports: Cough, Nausea/Vomiting. Denies: Chest Pain, Fev er/Chills, Headaches, Shortness of Breath Abdominal Pain Score (Numeric/FACES): 3 - Related Data Allergies Allergy/AdvReac Type Severity Reaction Status Date / Time No Known Allergies Allergy Verified 09/05/21 07:53 Home Meds: Home Meds Propranolol HCl [Propranolol] 40 mg PO BID 02/08/21 [History] Ondansetron [Zofran ODT] 4 mg PO Q6H PRN #20 tab.dis 09/05/21 [Rx] Past Medical History Genitourinary History: Reports: STD Other Genitourinary History: chlamydia CONDUCTOR YARD History: Reports: Dysfunctional Uterine Bleeding, Other (See Below) Other CONDUCTOR YARD History: ovarian cysts Musculoskeletal History: Reports: Fracture Other Musculoskeletal History: skull fx when she was 2 Neurological History: Reports: Migraines Psychiatric History: Reports: Anxiety Social & Family History - Family History Family Medical History: No Pertinent Family History - Tobacco Use Tobacco Use Status *Q: Never Tobacco User - Caffeine Use Caffeine Use: Reports: None - Living Situation & Occupation Living situation: Reports: Single, with Family 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) ED ROS GENERAL - Review of Systems Review Of Systems: See Below Constitutional: Reports: No Symptoms HEENT: Reports: No Symptoms Respiratory: Reports: No Symptoms Cardiovascular: Reports: No Symptoms Endocrine: Reports: No Symptoms GI/Abdominal: Reports: Abdominal Pain, Diarrhea, Nausea, Vomiting : Reports: No Symptoms Musculoskeletal: Reports: No Symptoms Skin: Reports: No Symptoms ED EXAM, GI/ABD - Physical Exam Exam: See Below Exam Limited By: No Limitations General Appearance: Alert, No Apparent Distress Ears: Normal External Exam Nose: Normal Inspection Head: Atraumatic, Normocephalic Neck: Normal Inspection Respiratory/Chest: No Respiratory Distress, Lungs Clear, Normal Breath Sounds Cardiovascular: Regular Rate, Rhythm, No Edema, No Murmur GI/Abdominal Exam: Soft, No Organomegaly, No Mass, Tender (Mild tenderness to the epigastric region) Back Exam: Normal Inspection Extremities: Normal Inspection Neurological: Alert, Oriented, No Motor/Sensory Deficits #1 Interpretation EKG Date: 09/05/21 Time: 11:35 Rhythm: NSR Rate (Beats/Min): 99 [place]: Normal P-Wave: Present QRS: Normal ST-T: Normal QT: Normal Course - Vital Signs Last Recorded V/S: Last Vital Signs Temp 99.8 F 09/05/21 07:50 Pulse 120 H 09/05/21 07:50 Resp 16 09/05/21 07:50 BP 117/89 09/05/21 07:50 Pulse Ox 99 09/05/21 07:50 - Orders/Labs/Meds Orders: Active Orders 24 hr Category Date Time Status Peripheral IV Care [RC] . DIRECTED Care 09/05/21 08:10 Active Sodium Chloride 0.9% [Saline Flush] Med 09/05/21 09:00 Active 10 ml FLUSH 0900,2100 Sodium Chloride 0.9% [Saline Flush] Med 09/05/21 08:10 Active 10 ml FLUSH ASDIRECTED PRN ED Antiemetic Medication Reflex [OM.PC] Stat Oth 09/05/21 08:10 Ordered Peripheral IV Insertion Adult [OM.PC] Stat Oth 09/05/21 08:10 Ordered EKG 12 Lead [EK] Stat Ther 09/05/21 11:29 Ordered Medication Orders Sodium Chloride (Sodium Chloride 0.9% 10 Ml Syringe) 10 ml FLUSH 0900,2100 [facility] Last Admin: 09/05/21 08:21 Dose: 10 ml Documented by: SANTO Sodium Chloride (Sodium Chloride 0.9% 10 Ml Syringe) 10 ml FLUSH ASDIRECTED PRN PRN Reason: Keep Vein Open Last Admin: 09/05/21 08:22 Dose: 10 ml Documented by: SANTO Labs: Laboratory Tests 09/05/21 09/05/21 09/05/21 Range/Units 08:00 08:00 08:00 WBC 9.26 (3.98-10.04) K/mm3 RBC 4.81 (3.98-5.22) M/mm3 Hgb 13.7 (11.2-15.7) gm/dl Hct 41.0 (34.1-44.9) % MCV 85.2 (79.4-94.8) fl MCH 28.5 (25.6-32.2) pg MCHC 33.4 (32.2-35.5) g/dl RDW Std Deviation 41.3 (36.4-46.3) fL Plt Count 261 (182-369) K/mm3 MPV 9.2 L (9.4-12.3) fl Neut % (Auto) 87.8 H (34.0-71.1) % Lymph % (Auto) 4.3 L (19.3-51.7) % [place] % (Auto) 7.1 (4.7-12.5) % Eos % (Auto) 0.5 L (0.7-5.8) Baso % (Auto) 0.1 (0.1-1.2) % Neut # (Auto) 8.12 H (1.56-6.13) K/mm3 Lymph # (Auto) 0.40 L (1.18-3.74) K/mm3 [place] # (Auto) 0.66 H (0.24-0.36) K/mm3 Eos # (Auto) 0.05 (0.04-0.36) K/mm3 Baso # (Auto) 0.01 (0.01-0.08) K/mm3 Sodium 139 (136-145) mEq/L Potassium 3.8 (3.5-5.1) mEq/L Chloride 102 (98-107) mEq/L Carbon Dioxide 26 (21-32) mEq/L Anion Gap 14.8 (5-15) BUN 20 H (7-18) mg/dL Creatinine 0.8 (0.55-1.02) mg/dL Est Cr Clr Drug Dosing 95.59 mL/min Estimated GFR (MDRD) > 60 (>60) mL/min BUN/Creatinine Ratio 25.0 H (14-18) Glucose 109 H (70-99) mg/dL Calcium 8.5 (8.5-10.1) mg/dL Total Bilirubin 0.4 (0.2-1.0) mg/dL AST 9 L (15-37) U/L ALT 14 (14-59) U/L Alkaline Phosphatase 84 (46-116) U/L Total Protein 7.3 (6.4-8.2) g/dl Albumin 4.1 (3.4-5.0) g/dl Globulin 3.2 gm/dL Albumin/Globulin Ratio 1.3 (1-2) Lipase 67 L (73-393) U/L HCG, Qual Negative (NEGATIVE) Meds: Medications Generic Name Dose Route Start Last Admin Trade Name Frexander PRN Reason Stop Dose Admin Sodium Chloride 10 ml 09/05/21 09:00 09/05/21 08:21 Sodium Chloride 0.9% 10 Ml Syringe FLUSH 10 ml 0900,2100 ZARINA Administration Sodium Chloride 10 ml 09/05/21 08:10 09/05/21 08:22 Sodium Chloride 0.9% 10 Ml Syringe FLUSH 10 ml ASDIRECTED PRN Administration Keep Vein Open Discontinued Medications Generic Name Dose Route Start Last Admin Trade Name Freq PRN Reason Stop Dose Admin Famotidine 20 mg 09/05/21 11:29 09/05/21 11:42 Famotidine 20 Mg/2 Ml Sdv IVPUSH 09/05/21 11:30 20 mg ONETIME ONE Administration Hydromorphone HCl 0.5 mg 09/05/21 08:11 09/05/21 08:21 Hydromorphone 0.5 Mg/0.5 Ml Syringe IVPUSH 09/05/21 08:12 0.5 mg ONETIME ONE Administration Sodium Chloride 1,000 mls @ 1,000 mls/hr 09/05/21 08:10 09/05/21 08:21 Normal Saline IV 09/05/21 09:09 1,000 mls/hr .BOLUS STA Administration Sodium Chloride 1,000 mls @ 1,000 mls/hr 09/05/21 09:38 09/05/21 09:57 Normal Saline IV 09/05/21 10:37 1,000 mls/hr ONETIME ONE Administration Metoclopramide HCl 10 mg 09/05/21 09:37 09/05/21 09:57 Metoclopramide 10 Mg/2 Ml Sdv IVPUSH 09/05/21 09:38 10 mg ONETIME ONE Administration Ondansetron HCl 4 mg 09/05/21 08:10 09/05/21 08:21 Ondansetron 4 Mg/2 Ml Sdv IVPUSH 09/05/21 08:11 4 mg ONETIME ONE Administration - Re-Assessments/Exams Free Text/Narrative Re-Assessment/Exam: 09/05/21 08:15 I ordered an IV NS 1L bolus, zofran 4mg IV, dilaudid 0.5mg IV, labs, and UA. 09/05/21 10:12 Her CBC and CMP look good. Her lipase is low at 67. Her HCG is negative. She feels a little better but still has nausea. I ordered reglan 10mg IV and another liter of NS. 09/05/21 12:35 She said now her chest is hurting. I ordered an EKG and pepcid 20mg IV. Her EKG shows a NSR with no acute changes. 09/05/21 12:36 She feels better but just a little dizzy. I will discharge her home with some zofran. Departure - Departure Time of Disposition: 12:40 Disposition: Home, Self-Care 01 Condition: Good Clinical Impression: Gastroenteritis - Discharge Information *PRESCRIPTION DRUG MONITORING PROGRAM REVIEWED*: Not Applicable *COPY OF PRESCRIPTION DRUG MONITORING REPORT IN PATIENT LINDA: Not Applicable Prescriptions: Ondansetron [Zofran ODT] 4 mg PO Q6H PRN #20 tab.dis PRN Reason: Nausea\vomiting Referrals: Colleen Sheets, [facility] [Primary Care Provider] - 1 Week Forms: ED Department Discharge Additional Instructions: Drink plenty of fluids. Take zofran every 4 hours as needed for nausea and vomiting. Take pepcid 20mg daily for 5 days. Try advancing your diet later today with crackers and so forth. Follow up with Colleen within a week. Please return if you are worse. Sepsis Event Note (ED) - Evaluation Sepsis Screening Result: No Definite Risk - Focused Exam Vital Signs: Vital Signs Temp Pulse Resp BP Pulse Ox 09/05/21 07:50 99.8 F 120 H 16 117/89 99 - My Orders Last 24 Hours: My Active Orders 09/05/21 08:10 Peripheral IV Care [RC] . DIRECTED Sodium Chloride 0.9% [Saline Flush] 10 ml FLUSH ASDIRECTED PRN ED Antiemetic Medication Reflex [OM.PC] Stat Peripheral IV Insertion Adult [OM.PC] Stat 09/05/21 09:00 Sodium Chloride 0.9% [Saline Flush] 10 ml FLUSH 899,209909/05/21 11:29 EKG 12 Lead [EK] Stat - Assessment/Plan Last 24 Hours: My Active Orders 09/05/21 08:10 Peripheral IV Care [RC] . DIRECTED Sodium Chloride 0.9% [Saline Flush] 10 ml FLUSH ASDIRECTED PRN ED Antiemetic Medication Reflex [OM.PC] Stat Peripheral IV Insertion Adult [OM.PC] Stat 09/05/21 09:00 Sodium Chloride 0.9% [Saline Flush] 10 ml FLUSH 899,209909/05/21 11:29 EKG 12 Lead [EK] Stat
[2021-09-05] MEDS ORDERED: Sodium Chloride 0.9% 10 ML Syringe FLUSH SCH (09:00)
[2021-09-05] MEDS ORDERED: Metoclopramide 10 MG/2 ML SDV IVPUSH ONE (09:37)
[2021-09-05] MEDS ORDERED: Sodium Chloride 0.9% 1,000 ML IV ONE (09:38)
[2021-09-05] MEDS ORDERED: Famotidine 20 MG/2 ML SDV IVPUSH ONE (11:29)
== END 2021-09-05 13:00 | disposition home or self-care (01) ==
LOC: JD.ED 07:37
DX: K52.9 Noninfective gastroenteritis and colitis, unspecified (principal); R11.2 Nausea with vomiting, unspecified
CPT/HCPCS: 36415; 80053; 83690; 84703; 85025; 93005; 96374; 96375; 99284; J1170; J2405; J2765; J3490; J7030

== ENCOUNTER 2021-11-13 15:52 | Emergency (ER) | payer OTHER ==
[2021-11-13] MEDS ORDERED: Sodium Chloride 0.9% 10 ML Syringe FLUSH PRN ×2 (16:36→16:37)
[2021-11-13] MEDS ORDERED: Sodium Chloride 0.9% 1,000 ML IV STA (16:37)
[2021-11-13] MEDS ORDERED: Iopamidol 612 MG/ML 100 ML Bottle IVPUSH ONE (17:53)
[2021-11-13] MEDS ORDERED: Sodium Chloride 0.9% 10 ML Syringe FLUSH ONE (17:53)
[2021-11-13] MEDS ORDERED: Sodium Chloride 0.9% 100 ML IV SCH (18:00)
[2021-11-13] MEDS ORDERED: Magnesium Citrate Solution 296 ML Bottle PO ONE (20:14)
== END 2021-11-13 20:51 | disposition home or self-care (01) ==
LOC: JD.ED 15:52
DX: N76.0 Acute vaginitis (principal); B96.89 Other specified bacterial agents as the cause of diseases classified elsewhere
CPT/HCPCS: 36415; 74177; 80053; 81001; 81025; 83690; 85025; 86140; 87210; 87808; 99284; A9270; J7030; Q9967

== ENCOUNTER 2021-11-19 13:06 | Emergency (ER) | payer MEDICAID ==
[2021-11-19] MEDS: Sodium Chloride 0.9% 1,000 ML IV STA (16:25)
[2021-11-19] MEDS: HYDROmorphone 0.5 MG/0.5 ML Syringe IVPUSH ONE (16:26)
[2021-11-19] MEDS: Ondansetron 4 MG/2 ML SDV IVPUSH ONE (16:26)
[2021-11-19] MEDS: Sodium Chloride 0.9% 10 ML Syringe FLUSH PRN (17:16)
== END 2021-11-19 19:05 | disposition home or self-care (01) ==
LOC: JD.ED 13:06
DX: R10.11 Right upper quadrant pain (principal)
CPT/HCPCS: 36415; 74018; 76705; 80053; 81001; 81025; 83690; 85025; 86140; 96374; 96375; 99284; J1170; J2405; J7030

== ENCOUNTER 2021-12-17 23:04 | Emergency (ER) | payer OTHER ==
[2021-12-18] MEDS ORDERED: Ketorolac 15 MG/ML SDV IVPUSH ONE (00:16)
== END 2021-12-18 01:48 | disposition home or self-care (01) ==
LOC: JD.ED 23:04
DX: R07.89 Other chest pain (principal)
CPT/HCPCS: 36415; 71045; 80053; 84484; 85025; 85379; 85610; 93005; 96374; 99285; J1885

== ENCOUNTER 2022-01-23 13:38 | Emergency (ER) | payer MEDICAID | END 2022-01-23 17:24 | disposition home or self-care (01) | LOC: JD.ED 13:38 | DX: R10.30 Lower abdominal pain, unspecified (principal) | CPT/HCPCS: 36415; 76817; 76817-26; 80053; 81001; 84702; 85025; 87210; 87808; 99284-25 ==

== ENCOUNTER 2022-03-28 22:46 | Emergency (ER) | payer SELFPAY ==
[2022-03-29] MEDS ORDERED: Loperamide 2 MG Cap PO ONE (00:20)
[2022-03-29] MEDS ORDERED: Ketorolac 30 MG/ML SDV IM ONE (00:20)
[2022-03-29] MEDS ORDERED: Ondansetron 4 MG Tab.DIS PO ONE (00:20)
== END 2022-03-29 00:37 | disposition home or self-care (01) ==
LOC: JD.ED 22:46
DX: R10.11 Right upper quadrant pain (principal); R10.12 Left upper quadrant pain; R11.10 Vomiting, unspecified; Z79.899 Other long term (current) drug therapy
CPT/HCPCS: 36415; 80053; 81001; 81025; 83690; 85025; 96372; 99284; A9270; J1885

== ENCOUNTER 2022-03-31 22:01 | Emergency (ER) | payer SELFPAY ==
[2022-03-31] MEDS ORDERED: Loperamide 2 MG Cap PO ONE (22:22)
[2022-03-31] MEDS ORDERED: Phenazopyridine 95 MG Tab PO ONE (22:22)
== END 2022-03-31 23:12 | disposition home or self-care (01) ==
LOC: SUPCPDRO 22:01 → JD.ED 22:01
DX: N39.0 Urinary tract infection, site not specified (principal)
CPT/HCPCS: 81001; 87086; 87088; 87186; 99283; A9270

== ENCOUNTER 2022-04-02 10:48 | Emergency (ER) | payer MEDICAID ==
[2022-04-02] MEDS ORDERED: HYDROmorphone 1 MG/ML Syringe IM ONE (11:41)
[2022-04-02] MEDS ORDERED: Sulfamethoxazole/Trimethoprim 800-160 MG Tab PO ONE (11:42)
[2022-04-02 12:44] LABS: ESTIMATED GFR 125 mL/min (>60)
[2022-04-02] MEDS ORDERED: Ketorolac 60 MG/2 ML SDV IM ONE (13:20)
== END 2022-04-02 14:30 | disposition home or self-care (01) ==
LOC: JD.ED 10:48
DX: N12 Tubulo-interstitial nephritis, not specified as acute or chronic (principal); N93.9 Abnormal uterine and vaginal bleeding, unspecified; Z79.899 Other long term (current) drug therapy
CPT/HCPCS: 36415; 74176; 80053; 81001; 81025; 85025; 86140; 87086; 87088; 87186; 96372; 99284; A9270; J1170; J1885

== ENCOUNTER 2022-04-19 22:37 | Emergency (ER) | payer MEDICAID ==
[2022-04-20] MEDS: Nitrofurantoin Monohydrate/Macrocrystalline 100 MG Cap PO STA ×2 (01:47→02:00)
== END 2022-04-20 02:12 | disposition home or self-care (01) ==
LOC: JD.ED 22:37
DX: N39.0 Urinary tract infection, site not specified (principal)
CPT/HCPCS: 81001; 81025; 87086; 87088; 87186; 99284; A9270-GY

== ENCOUNTER 2022-06-06 00:03 | Emergency (ER) | payer MEDICAID, OTHER ==
[2022-06-06 02:23] LABS: ESTIMATED GFR 125 mL/min (>60)
[2022-06-06] MEDS ORDERED: Acetaminophen 325 MG Tab PO ONE (02:42)
== END 2022-06-06 03:11 | disposition home or self-care (01) ==
LOC: JD.ED 00:03
DX: B34.9 Viral infection, unspecified (principal); Z79.899 Other long term (current) drug therapy
CPT/HCPCS: 36415; 71046; 71046-26; 80053; 81001; 81025; 83605; 85007; 85027; 85379; 86140; 87040; 99283; A9270-GY

== ENCOUNTER 2022-09-02 20:01 | Emergency (ER) | payer MEDICAID, OTHER | END 2022-09-02 22:00 | disposition left against medical advice (07) | LOC: JD.ED 20:01 | DX: Z53.21 Procedure and treatment not carried out due to patient leaving prior to being seen by health care provider (principal) ==

== ENCOUNTER 2022-09-16 19:21 | Emergency (ER) | payer MEDICAID ==
[2022-09-17 01:08] LABS: ESTIMATED GFR 125 mL/min (>60)
== END 2022-09-17 02:36 | disposition home or self-care (01) ==
LOC: JD.ED 19:21
DX: O20.9 Hemorrhage in early pregnancy, unspecified (principal); Z3A.01 Less than 8 weeks gestation of pregnancy
CPT/HCPCS: 36415; 80053; 81001; 84702; 85025; 86900; 86901; 99284

== ENCOUNTER 2022-10-01 12:17 | Emergency (ER) | payer MEDICAID ==
[2022-10-01] MEDS ORDERED: Ondansetron 4 MG Tab.DIS PO ONE (12:27)
[2022-10-01] MEDS ORDERED: Ketorolac 60 MG/2 ML SDV IM ONE (12:38)
[2022-10-01 13:32] LABS: CORONAVIRUS COVID-19 NAA NEGATIVE (NEGATIVE)
== END 2022-10-01 14:10 | disposition home or self-care (01) ==
LOC: JD.ED 12:17
DX: J10.1 Influenza due to other identified influenza virus with other respiratory manifestations (principal); M54.41 Lumbago with sciatica, right side; M54.42 Lumbago with sciatica, left side; Z79.899 Other long term (current) drug therapy; Z20.822 Contact with and (suspected) exposure to COVID-19
CPT/HCPCS: 0240U; 71045; 96372; 99284; A9270; J1885

== ENCOUNTER 2022-10-03 20:03 | Emergency (ER) | payer MEDICAID ==
[2022-10-03] MEDS ORDERED: Sodium Chloride 0.9% 10 ML Syringe FLUSH PRN (22:42)
[2022-10-03] MEDS ORDERED: Ondansetron 4 MG/2 ML SDV IVPUSH ONE (22:42)
[2022-10-03] MEDS ORDERED: Codeine/Promethazine 10-6.25 MG/5 ML Syrup 5 ML UD Cup PO ONE (22:43)
[2022-10-03] MEDS ORDERED: Sodium Chloride 0.9% 1,000 ML IV SCH (22:45)
[2022-10-03 23:38] LABS: ESTIMATED GFR 107 mL/min (>60)
[2022-10-04] MEDS ORDERED: Codeine/Promethazine 10-6.25 MG/5 ML Syrup 5 ML UD Cup PO ONE (00:17)
== END 2022-10-04 00:46 | disposition home or self-care (01) ==
LOC: JD.ED 20:03
DX: J10.1 Influenza due to other identified influenza virus with other respiratory manifestations (principal); R11.2 Nausea with vomiting, unspecified
CPT/HCPCS: 36415; 71045; 80053; 83690; 85025; 96361; 96374; 99284; A9270; J2405; J3490; J7030

== ENCOUNTER 2022-11-16 21:20 | Emergency (ER) | payer MEDICAID ==
[2022-11-16] MEDS ORDERED: Ketorolac 30 MG/ML SDV IVPUSH ONE (21:44)
[2022-11-16] MEDS ORDERED: Ondansetron 4 MG/2 ML SDV IVPUSH ONE (21:44)
[2022-11-16] MEDS ORDERED: Sodium Chloride 0.9% 1,000 ML IV STA (21:44)
[2022-11-16] MEDS ORDERED: diphenhydrAMINE 50 MG/ML SDV IVPUSH ONE (21:49)
[2022-11-16] MEDS ORDERED: Sodium Chloride 0.9% 10 ML Syringe FLUSH PRN (21:57)
[2022-11-16] MEDS ORDERED: Sodium Chloride 0.9% 1,000 ML IV SCH (22:00)
[2022-11-16] MEDS ORDERED: Dexamethasone 10 MG/ML SDV IVPUSH ONE (22:56)
== END 2022-11-16 23:26 | disposition home or self-care (01) ==
LOC: JD.ED 21:20
DX: G43.909 Migraine, unspecified, not intractable, without status migrainosus (principal); R55 Syncope and collapse; J45.909 Unspecified asthma, uncomplicated
CPT/HCPCS: 36415; 70450; 80053; 81025; 83735; 85025; 93005; 93225; 93226; 96361; 96374; 96375; 99284; J1100; J1200; J1885; J2405; J3490; J7030; 93010

== ENCOUNTER 2023-01-12 23:11 | Emergency (ER) | payer MEDICAID, OTHER ==
[2023-01-13 00:52] LABS: ESTIMATED GFR 125 mL/min (>60)
[2023-01-13] MEDS ORDERED: Sodium Chloride 0.9% 1,000 ML IV ONE (00:57)
[2023-01-13] MEDS ORDERED: predniSONE 20 MG Tab PO ONE (01:00)
[2023-01-13] MEDS ORDERED: Albuterol 0.083% 2.5 MG/3 ML Neb Soln NEB ONE (01:01)
[2023-01-13 01:14] LABS: CORONAVIRUS COVID-19 NAA NEGATIVE (NEGATIVE)
== END 2023-01-13 02:31 | disposition home or self-care (01) ==
LOC: JD.ED 23:11
DX: J45.901 Unspecified asthma with (acute) exacerbation (principal); Z20.822 Contact with and (suspected) exposure to COVID-19
CPT/HCPCS: 0240U; 36415; 80053; 81001; 81025; 83690; 83735; 85025; 86140; 94640; 96360; 99284; J7030; J7512; 99283; J7620-GY

== ENCOUNTER 2023-02-01 00:55 | Emergency (ER) | payer MEDICAID ==
[2023-02-01 01:21] LABS: APPEARANCE,URINE SLT CLOUDY (Clear); BILIRUBIN,URINE NEGATIVE (Negative); COLOR,URINE LIGHT YELLOW (Yellow); GLUCOSE,URINE NEGATIVE (Negative); KETONES,URINE NEGATIVE (Negative); LEUKOCYTE ESTERASE,URINE 2+ (Negative); NITRITE,URINE NEGATIVE (Negative); OCCULT BLOOD,URINE 2+ (Negative); PH,URINE 6.5 (5.0-8.0); PROTEIN,URINE 2+ (Negative); UROBILINOGEN,URINE 0.2 (0.2-1.0)
[2023-02-01 01:32] LABS: BASOPHILS ABSOLUTE AUTO 0.04 K/mm3 (0.01-0.08); BASOPHILS PERCENT AUTO 0.5 % (0.1-1.2); EOSINOPHILS ABSOLUTE AUTO 0.09 K/mm3 (0.04-0.36); EOSINOPHILS PERCENT AUTO 1.1 (0.7-5.8); HEMATOCRIT 37.9 % (34.1-44.9); HEMOGLOBIN 12.7 gm/dl (11.2-15.7); IMMATURE GRAN ABSOLUTE AUTO 0.02 K/mm3 (0.00-0.10); IMMATURE GRAN PERCENT AUTO 0.3 % (<=1.0); LYMPHOCYTES ABSOLUTE AUTO 1.57 K/mm3 (1.18-3.74); LYMPHOCYTES PERCENT AUTO 19.7 % (19.3-51.7); MEAN CORPUSCULAR HGB CONC 33.5 g/dl (32.2-35.5); MEAN CORPUSCULAR VOLUME 86.5 fl (79.4-94.8); MEAN PLATELET VOLUME 9.1 fl (9.4-12.3); NEUTROPHILS ABSOLUTE AUTO 5.45 K/mm3 (1.56-6.13); NEUTROPHILS PERCENT AUTO 68.4 % (34.0-71.1); PLATELET COUNT,PLT 264 K/mm3 (182-369); RED BLOOD CELL COUNT 4.38 M/mm3 (3.98-5.22); WHITE BLOOD CELL COUNT,WBC 7.97 K/mm3 (3.98-10.04)
[2023-02-01] MEDS ORDERED: Lactated Ringers 1,000 ML IV ONE ×2 (01:33→01:57)
[2023-02-01] MEDS ORDERED: Ondansetron 4 MG/2 ML SDV IVPUSH PRN (01:34)
[2023-02-01 01:37] LABS: WBC CLUMPS,URINE FEW /hpf (NOT SEEN); WBC,URINE 50-75 /hpf (0-5)
[2023-02-01 01:38] LABS: BACTERIA,URINE MODERATE /hpf (FEW); MUCUS,URINE FEW /hpf (FEW)
[2023-02-01 01:53] LABS: ALBUMIN 3.5 g/dl (3.4-5.0); ANION GAP 8.6 (5-15); BILIRUBIN TOTAL 0.4 mg/dL (0.2-1.0); BUN/CREATININE RATIO 22.9 (14-18); CALCIUM 8.5 mg/dL (8.5-10.1); CREATININE 0.7 mg/dL (0.55-1.02); EST CRCL DRUG DOSING (CG) 117.01 mL/min; POTASSIUM,K 3.6 mEq/L (3.5-5.1); PROTEIN TOTAL,TP 6.9 g/dl (6.4-8.2)
[2023-02-01] MEDS ORDERED: Ketorolac 30 MG/ML SDV IVPUSH ONE (02:23)
[2023-02-01] MEDS ORDERED: cefTRIAXone 1 GM in Sodium Chloride 0.9% 100 ML IV ONE (02:24)
== END 2023-02-01 03:35 | disposition home or self-care (01) ==
LOC: JD.ED 00:55
DX: N12 Tubulo-interstitial nephritis, not specified as acute or chronic (principal); J45.909 Unspecified asthma, uncomplicated; Z79.899 Other long term (current) drug therapy
CPT/HCPCS: 36415; 80053; 81001; 84702; 85025; 87086; 87088; 87186; 96361; 96365; 96375; 99284; J0696; J1885; J2405; J3490; J7120

== ENCOUNTER 2023-02-03 06:38 | Emergency (ER) | payer MEDICAID ==
[2023-02-03] MEDS ORDERED: Ondansetron 4 MG/2 ML SDV IVPUSH ONE (08:18)
[2023-02-03] MEDS ORDERED: Lactated Ringers 1,000 ML IV ONE (08:18)
[2023-02-03 08:53] LABS: BASOPHILS ABSOLUTE AUTO 0.03 K/mm3 (0.01-0.08); BASOPHILS PERCENT AUTO 0.4 % (0.1-1.2); EOSINOPHILS ABSOLUTE AUTO 0.05 K/mm3 (0.04-0.36); EOSINOPHILS PERCENT AUTO 0.7 (0.7-5.8); HEMATOCRIT 37.2 % (34.1-44.9); HEMOGLOBIN 12.4 gm/dl (11.2-15.7); IMMATURE GRAN ABSOLUTE AUTO 0.01 K/mm3 (0.00-0.10); IMMATURE GRAN PERCENT AUTO 0.1 % (<=1.0); LYMPHOCYTES PERCENT AUTO 19.3 % (19.3-51.7); MEAN CORPUSCULAR HEMOGLOBIN 28.8 pg (25.6-32.2); MEAN CORPUSCULAR HGB CONC 33.3 g/dl (32.2-35.5); MEAN CORPUSCULAR VOLUME 86.3 fl (79.4-94.8); MEAN PLATELET VOLUME 9.1 fl (9.4-12.3); MONOCYTES PERCENT AUTO 7.4 % (4.7-12.5); NEUTROPHILS ABSOLUTE AUTO 4.85 K/mm3 (1.56-6.13); NEUTROPHILS PERCENT AUTO 72.1 % (34.0-71.1); PLATELET COUNT,PLT 271 K/mm3 (182-369); RED BLOOD CELL COUNT 4.31 M/mm3 (3.98-5.22); WHITE BLOOD CELL COUNT,WBC 6.74 K/mm3 (3.98-10.04)
[2023-02-03 09:06] LABS: APPEARANCE,URINE CLEAR (Clear); BILIRUBIN,URINE NEGATIVE (Negative); COLOR,URINE YELLOW (Yellow); GLUCOSE,URINE NEGATIVE (Negative); KETONES,URINE NEGATIVE (Negative); LEUKOCYTE ESTERASE,URINE NEGATIVE (Negative); NITRITE,URINE NEGATIVE (Negative); OCCULT BLOOD,URINE NEGATIVE (Negative); PH,URINE 6.5 (5.0-8.0); PROTEIN,URINE NEGATIVE (Negative)
[2023-02-03 09:17] LABS: ALBUMIN 3.3 g/dl (3.4-5.0); ANION GAP 11.3 (5-15); BILIRUBIN TOTAL 0.3 mg/dL (0.2-1.0); BUN/CREATININE RATIO 23.3 (14-18); CALCIUM 8.2 mg/dL (8.5-10.1); CREATININE 0.6 mg/dL (0.55-1.02); EST CRCL DRUG DOSING (CG) 136.51 mL/min; POTASSIUM,K 3.3 mEq/L (3.5-5.1); PROTEIN TOTAL,TP 6.7 g/dl (6.4-8.2)
[2023-02-03] MEDS ORDERED: Potassium Chloride 20 MEQ Tab.ER PO ONE (11:20)
== END 2023-02-03 11:35 | disposition home or self-care (01) ==
LOC: JD.ED 06:38
DX: N12 Tubulo-interstitial nephritis, not specified as acute or chronic (principal); R11.2 Nausea with vomiting, unspecified; Z79.899 Other long term (current) drug therapy
CPT/HCPCS: 36415; 80053; 81003; 81025; 85025; 96361; 96374; 99284; A9270; J2405; J7120

== ENCOUNTER 2023-02-15 23:02 | Emergency (ER) | payer MEDICAID ==
[2023-02-16 00:27] LABS: BASOPHILS ABSOLUTE AUTO 0.03 K/mm3 (0.01-0.08); BASOPHILS PERCENT AUTO 0.4 % (0.1-1.2); EOSINOPHILS ABSOLUTE AUTO 0.14 K/mm3 (0.04-0.36); HEMATOCRIT 39.6 % (34.1-44.9); HEMOGLOBIN 13.2 gm/dl (11.2-15.7); IMMATURE GRAN ABSOLUTE AUTO 0.01 K/mm3 (0.00-0.10); IMMATURE GRAN PERCENT AUTO 0.1 % (<=1.0); LYMPHOCYTES PERCENT AUTO 16.8 % (19.3-51.7); MEAN CORPUSCULAR HEMOGLOBIN 28.5 pg (25.6-32.2); MEAN CORPUSCULAR HGB CONC 33.3 g/dl (32.2-35.5); MEAN CORPUSCULAR VOLUME 85.5 fl (79.4-94.8); MEAN PLATELET VOLUME 9.1 fl (9.4-12.3); MONOCYTES ABSOLUTE AUTO 0.58 K/mm3 (0.24-0.36); MONOCYTES PERCENT AUTO 8.1 % (4.7-12.5); NEUTROPHILS ABSOLUTE AUTO 5.18 K/mm3 (1.56-6.13); NEUTROPHILS PERCENT AUTO 72.6 % (34.0-71.1); PLATELET COUNT,PLT 292 K/mm3 (182-369); RED BLOOD CELL COUNT 4.63 M/mm3 (3.98-5.22); WHITE BLOOD CELL COUNT,WBC 7.14 K/mm3 (3.98-10.04)
[2023-02-16] MEDS ORDERED: Albuterol 6.7 GM Inhaler INH ONE ×2 (00:28→03:56)
[2023-02-16] MEDS ORDERED: Ondansetron 4 MG Tab.DIS PO ONE (00:36)
[2023-02-16] MEDS ORDERED: Famotidine 20 MG Tab PO ONE (00:40)
[2023-02-16] MEDS ORDERED: Pantoprazole 40 MG Tab.CR PO ONE (00:41)
[2023-02-16 00:43] LABS: A/G RATIO 1.1 (1-2); ANION GAP 11.3 (5-15); BILIRUBIN TOTAL 0.4 mg/dL (0.2-1.0); BUN/CREATININE RATIO 21.4 (14-18); CREATININE 0.7 mg/dL (0.55-1.02); EST CRCL DRUG DOSING (CG) 107.93 mL/min; POTASSIUM,K 3.3 mEq/L (3.5-5.1); PROTEIN TOTAL,TP 7.8 g/dl (6.4-8.2)
[2023-02-16] MEDS ORDERED: Acetaminophen 325 MG Tab PO ONE (00:47)
[2023-02-16 01:49] LABS: APPEARANCE,URINE CLEAR (Clear); BILIRUBIN,URINE NEGATIVE (Negative); COLOR,URINE YELLOW (Yellow); GLUCOSE,URINE NEGATIVE (Negative); KETONES,URINE NEGATIVE (Negative); LEUKOCYTE ESTERASE,URINE NEGATIVE (Negative); NITRITE,URINE NEGATIVE (Negative); OCCULT BLOOD,URINE NEGATIVE (Negative); PROTEIN,URINE NEGATIVE (Negative)
[2023-02-16] MEDS ORDERED: Potassium Chloride 20 MEQ Tab.ER PO ONE (03:26)
== END 2023-02-16 04:00 | disposition home or self-care (01) ==
LOC: JD.ED 23:02
DX: K21.00 Gastro-esophageal reflux disease with esophagitis, without bleeding (principal); J45.909 Unspecified asthma, uncomplicated
CPT/HCPCS: 36415; 71046; 80053; 81003; 84703; 85025; 99284; A9270

== ENCOUNTER 2023-02-19 12:31 | Emergency (ER) | payer MEDICAID ==
[2023-02-19] MEDS ORDERED: Ketorolac 30 MG/ML SDV IM ONE (13:03)
== END 2023-02-19 14:30 | disposition home or self-care (01) ==
LOC: JD.ED 12:31
DX: S91.215A Laceration without foreign body of left lesser toe(s) with damage to nail, initial encounter (principal); J45.909 Unspecified asthma, uncomplicated; W18.09XA Striking against other object with subsequent fall, initial encounter
CPT/HCPCS: 73630; 96372; 99283; J1885

== ENCOUNTER 2023-02-27 23:05 | Emergency (ER) | payer SELFPAY ==
[2023-02-28] MEDS ORDERED: Dextromethorphan HBr 30 MG/5 ML Susp ML PO STA (01:03)
[2023-02-28] MEDS ORDERED: guaiFENesin/Dextromethorphan 100-10 MG/5 ML Soln 5 ML Cup PO ONE (01:12)
[2023-02-28] MEDS ORDERED: Prochlorperazine 10 MG/2 ML SDV IM ONE (01:15)
== END 2023-02-28 02:04 | disposition home or self-care (01) ==
LOC: JD.ED 23:05
DX: R11.0 Nausea (principal); J45.909 Unspecified asthma, uncomplicated
CPT/HCPCS: 96372; 99283; A9270; J0780

== ENCOUNTER 2023-03-24 01:09 | Emergency (ER) | payer SELFPAY ==
[2023-03-24 02:22] LABS: BARBITURATE SCREEN,URINE NEGATIVE (CUTOFF=200); BENZODIAZEPINES SCREEN,URINE NEGATIVE (CUTOFF=150); BUPRENORPHINE SCREEN,URINE NEGATIVE (CUTOFF=10); METHADONE SCREEN, URINE NEGATIVE (CUTOFF=200); METHAMPHETAMINES SCREEN, URINE NEGATIVE (CUTOFF=500); OXYCODONE SCREEN,URINE NEGATIVE (CUT0FF=100); PROPOXYPHENE SCREEN,URINE NEGATIVE (CUTOFF=300); THC SCREEN,URINE 20 NG/ML NEGATIVE (CUTOFF=50)
[2023-03-24 02:23] LABS: AMPHETAMINES SCREEN, URINE NEGATIVE (CUTOFF=500)
[2023-03-24] MEDS ORDERED: Ondansetron 4 MG/2 ML SDV IVPUSH ONE (02:36)
[2023-03-24] MEDS ORDERED: Prenatal Multivitamin with Calcium/Folic Acid/Iron Tab PO STA (03:06)
== END 2023-03-24 03:23 | disposition home or self-care (01) ==
LOC: JD.ED 01:09
DX: O99.891 Other specified diseases and conditions complicating pregnancy (principal); Z02.89 Encounter for other administrative examinations; O99.511 Diseases of the respiratory system complicating pregnancy, first trimester; J45.909 Unspecified asthma, uncomplicated; Z3A.01 Less than 8 weeks gestation of pregnancy
CPT/HCPCS: 36415; 80306; 81025; 84702; 96374; 99283; J2405; 99284